=== PATIENT | male | born 1950 | race Caucasian/White ===

== ENCOUNTER 2016-10-11 | Emergency (ER) | payer OTHER | END 2016-10-11 15:11 | disposition home or self-care (01) ==

== ENCOUNTER 2022-07-14 14:16 | Emergency (ER) | payer MEDICARE, OTHER ==
--- NOTE | 2022-07-14 14:29 | ED Physician Documentation ---
PD HPI MALE - Stated complaint Stated Complaint: MALE - Chief complaint Chief Complaint: UTI - History obtained from History obtained from: Patient - History of Present Illness Timing - onset: How many days ago (3-4 days of notable dysuria and urgency/frequency and feeling of very incomplete emptying. Has had hesitancy and lower output for few weeks.) Timing - duration: Days Timing - details: Gradual onset, Still present (more uncomfortable yesterday/today with only minimal dribbles out with voiding.) Associated symptoms: Dysuria (some discomfort with urination. He had Keflex from a prior infection (from several years ago) and started taking that, with improved dysuria, but still only dribbling output.). No: Hematuria, Discharge Similar symptoms before: Has not had sx before (has had some hesitancy and weaker stream with Rx of tamsulosin for awhile.) Recently seen: Not recently seen Review of Systems Constitutional: denies: Fever, Chills Ears: reports: Ear pain (rigth ear pain for a week or so. He had used earwax drops and ear candle to get some wax out. Still hurting with decreased hearing. Some nasal congestion.) Nose: reports: Congestion. denies: Sinus pressure / pain Throat: denies: Sore throat GI: denies: Abdominal Pain, Nausea, Vomiting, Diarrhea : reports: Dysuria, Frequency, Hesitancy, Unable to Void (only small dribbles at a time.) Skin: denies: Lesions PD PAST MEDICAL HISTORY - Past Medical History Cardiovascular: Hypertension Respiratory: None Neuro: None Endocrine/Autoimmune: None GI: Ulcerative colitis - Past Surgical History Past Surgical History: No - Present Medications Home Medications: Ambulatory Orders Medication Instructions Recorded Confirmed Amox/Clav 875/125 [Augmentin] 1 each PO Q12H #20 tablet 10/11/16 Loperamide [Imodium] 2 tab PO DAILY 10/11/16 10/11/16 Mesalamine [Apriso] 3 tab PO DAILY 10/11/16 10/11/16 Fluticasone [Flonase] 1 sprays TAMIKA BID #16 gm 07/14/22 Sulfamethox/Trimeth 800/160 1 each PO BID #14 tablet 07/14/22 [Bactrim Ds 800/160] - Allergies Allergies/Adverse Reactions: Allergies Allergy/AdvReac Type Severity Reaction Status Date / Time No Known Drug Allergies Allergy Verified 07/14/22 14:26 - Social History Does the pt smoke?: No Smoking Status: Never smoker Does the pt drink ETOH?: No Does the pt have substance abuse?: No - Immunizations Immunizations are current?: Yes PD ED PE NORMAL - Vitals Vital signs reviewed: Yes - General General: Alert and oriented X 3, No acute distress, Well developed/nourished - HEENT HEENT: Pharynx benign. No: Ears normal (right appears okay. Left canal is okay with TM showing fluid bulding but not red/inflammed. ) - Neck Neck: Supple, no meningeal sign, No adenopathy - Male Male : Deferred - Rectal Rectal: Deferred - Back Back: No CVA TTP - Derm Derm: Normal color, Warm and dry Results - Vitals Vitals: Vital Signs - 24 hr 07/14/22 07/14/22 14:20 15:48 Temperature 36.6 C Heart Rate 65 66 Respiratory 16 18 Rate Blood Pressure 137/84 H 149/79 H O2 Saturation 100 100 Oxygen O2 Source Room air - Labs Labs: Laboratory Tests 07/14/22 15:01 Urine Color YELLOW Urine Clarity CLEAR Urine pH 6.5 Ur Specific [place] 1.015 Urine Protein TRACE Urine Glucose (UA) NEGATIVE Urine Ketones NEGATIVE Urine Occult Blood NEGATIVE Urine Nitrite NEGATIVE Urine Bilirubin NEGATIVE Urine Urobilinogen 0.2 (NORMAL) Ur Leukocyte Esterase NEGATIVE Ur Microscopic Review NOT INDICATED Urine Culture Comments NOT INDICATED PD MEDICAL DECISION MAKING - ED course Complexity details: reviewed results (The patient's urine does not show obvious signs of infection although he is on cephalexin with incomplete resolution of symptoms so may be just partly treated. Symptom consideration would suggest trying a different antibiotic. Bladder scanner showed 360 mL so not enough to necessarily need a cath.), considered differential, d/w patient Departure - Departure Disposition: 01 Home, Self Care Clinical Impression: Urinary retention, Dysuria Acute serous otitis media Qualifiers: Laterality: right Condition: Stable Record reviewed to determine appropriate education?: Yes Follow-Up: [facility] [Provider Group] Prescriptions: Sulfamethox/Trimeth 800/160 [Bactrim Ds 800/160] 1 each PO BID #14 tablet Fluticasone [Flonase] 1 sprays TAMIKA BID #16 gm Comments: Your urine sample does not show obvious signs of infection but that could certainly most likely be because of the antibiotic you are currently on. However your symptoms sound incompletely cleared and so it is reasonable to try a different antibiotic. I would stop the cephalexin and instead change to Bactrim DS twice daily for a week. You did have a moderate amount of urine retention but not necessarily enough to need a catheter drainage at this point. I would suggest continuing your tamsulosin and adding another prostate medicine such as saw palmetto ([id number]) daily. [facility] and see if he can get a referral to urology for follow- up on this. Regarding your ear pressure and trouble hearing, it does look like there is some fluid behind the eardrum. There is minimal to no earwax in the canals on both sides. I would suggest promoting better drainage through the eustachian tubes. Consider antihistamine such as Zyrtec daily for the next 2 to 3 weeks. Do not use a decongestant such as Sudafed or so as that can augment your urinary retention. I would also consider Flonase/fluticasone steroid no spray twice daily to help promote drainage from the eustachian tube as well. I sent these prescriptions to [facility]. Discharge Date/Time: 07/14/22 15:48
[2022-07-14 15:09] LABS: BILIRUBIN,URINE NEGATIVE (NEGATIVE); GLUCOSE, URINE (UA) NEGATIVE (NEGATIVE); KETONES,URINE (UA) NEGATIVE (NEGATIVE); LEUKOCYTE ESTERASE, URINE NEGATIVE (NEGATIVE); NITRITE,URINE NEGATIVE (NEGATIVE); OCCULT BLOOD,URINE NEGATIVE (NEGATIVE); PH,URINE 6.5 PH (5.0-7.5); PROTEIN,URINE TRACE mg/dL (NEGATIVE); UROBILINOGEN,URINE 0.2 (NORMAL) E.U./dL (NORMAL)
[2022-07-14 15:10] LABS: CLARITY,URINE CLEAR (CLEAR)
[2022-07-14] MEDS ORDERED: SULFAMETH/TRIMETH DS 800/160 MG TABLET PO STA (15:22)
[2022-07-14 15:48] VITALS: BP 149/79
== END 2022-07-14 15:48 | disposition home or self-care (01) ==
LOC: ED 14:16
DX: R33.9 Retention of urine, unspecified (principal); R30.0 Dysuria; H65.01 Acute serous otitis media, right ear
CPT/HCPCS: 51798; 81003; 99283; 99284; A9270; 81001; 87086

== ENCOUNTER 2023-12-31 12:30 | Outpatient (CLI) | payer MEDICARE, OTHER | END 2023-12-31 12:45 | disposition home or self-care (01) | LOC: LAB.N 12:30 | PROVIDERS: ATTEND Physician Assistant Medical | DX: N39.0 Urinary tract infection, site not specified (principal) | CPT/HCPCS: 87086 ==

== ENCOUNTER 2024-05-09 08:00 | Outpatient (CLI) | payer MEDICARE, OTHER | END 2024-05-09 23:59 | disposition home or self-care (01) | LOC: LAB.N 08:00 | PROVIDERS: ATTEND Physician Assistant Medical | DX: R30.0 Dysuria (principal) | CPT/HCPCS: 87086 ==